=== PATIENT | male | born 1985 | race Two or more races ===

== ENCOUNTER 2017-05-19 09:52 | Emergency (ER) | payer BC ==
[~2017-05-19] VITALS: Ht 180.3 cm; Wt 81.6 kg
[2017-05-19] MEDS ORDERED: SODIUM CHLORIDE 0.9% 1,000 ML IV ONE (11:30)
[2017-05-19] MEDS ORDERED: BACITRACIN TOP OINT 1 UD PKG TOP ONE (11:30)
[2017-05-19] MEDS ORDERED: TETANUS-DIPTH-ACEL PERTUSSIS 0.5ML SYRG IM ONE (11:30)
[2017-05-19 11:45] LABS: Basophils # (auto) 0.2 uL; Basophils % (auto) 2.8 % (0.0-2.0); Eosinophils # (auto) 0.1 uL; Eosinophils % (auto) 1.1 % (0.0-7.0); Hematocrit 29.4 % (41.0-53.0); Lymphocytes % (auto) 12.7 % (10.0-50.0); Mean Corpuscular Hemoglobin 19.9 pg (28.0-32.0); Mean Corpuscular Hgb Conc. 30.7 g/dL (32.0-36.0); Mean Platelet Volume 7.3 fL (7.4-10.4); Monocytes # (auto) 0.7 uL; Monocytes % (auto) 8.8 % (0.0-12.0); Neutrophils # (auto) 6.1 uL; Neutrophils % (auto) 74.6 % (37.0-80.0); Nucleated Red Blood Cells % 0.1 %; Platelet Count (auto) 332 10^3/uL (140-450); Red Cell Distribution Width 17.1 % (11.6-16.0); White Blood Cell 8.2 10^3/uL (4.4-10.8)
[2017-05-19 12:03] LABS: Albumin 3.5 g/dL (3.4-5.0); Alkaline Phosphatase 101 U/L (45-117); Anion Gap 7 (5-15); Aspartate Aminotransferase 20 U/L (15-37); BUN/Creatinine Ratio 8.3; Bilirubin, Total 0.6 mg/dL (0.2-1.0); Blood Urea Nitrogen 8 mg/dL (7-18); Calcium 8.2 mg/dL (8.5-10.1); Carbon Dioxide 24 mmol/L (21-32); Chloride 109 mmol/L (98-107); GFR African American 115 mL/min; GFR Non-African American 95 mL/min; Glucose 96 mg/dL (74-106); Potassium 3.5 mmol/L (3.5-5.1); Sodium 140 mmol/L (136-145); Total Protein 7.7 g/dL (6.4-8.2)
[2017-05-19 18:57] LABS: Urine Bilirubin Negative (Negative); Urine Blood 1+ /uL (Negative); Urine Color Yellow (Yellow); Urine Glucose TRACE mg/dL (Normal); Urine Ketone Negative (Negative); Urine Mucus FEW (None Seen); Urine Nitrite Negative (Negative); Urine RBC 1 /hpf (0 - 3); Urine Squamous Epithelial Cell FEW /hpf (<5); Urine Urobilinogen Normal (Negative); Urine pH 5.5 (5.0-8.0)
[2017-05-19 22:22] VITALS: BP 127/85
== END 2017-05-19 22:30 | disposition short-term general hospital (02) ==
LOC: ER 09:52
DX: S50.811A Abrasion of right forearm, initial encounter (principal); F32.9 Major depressive disorder, single episode, unspecified; R45.851 Suicidal ideations; X78.1XXA Intentional self-harm by knife, initial encounter; Y93.89 Activity, other specified; Y92.89 Other specified places as the place of occurrence of the external cause; Y99.8 Other external cause status
CPT/HCPCS: 36415; 80053; 80307; 80320; 81001; 85025; 90471; 90715; 96360; 99285; J7030

== ENCOUNTER 2017-08-02 17:37 | Inpatient (IN) | payer BC ==
[~2017-08-02] VITALS: Ht 180.3 cm; Wt 80.8 kg
[2017-08-02 18:21] LABS: Basophils # (auto) 0.1 uL; Eosinophils # (auto) 0.2 uL; Monocytes # (auto) 0.7 uL; Monocytes % (auto) 9.4 % (0.0-12.0); Neutrophils # (auto) 5.1 uL; Nucleated Red Blood Cells % 0.3 %; Red Cell Distribution Width 18.6 % (11.8-14.3)
[2017-08-02 18:24] LABS: Basophils % (auto) 0.8 % (0.0-2.0); Eosinophils % (auto) 2.8 % (0.0-7.0); Hematocrit 20.3 % (41.0-53.0); Lymphocytes # (auto) 1.7 uL; Lymphocytes % (auto) 21.4 % (10.0-50.0); Mean Corpuscular Hemoglobin 17.2 pg (28.0-32.0); Mean Corpuscular Hgb Conc. 29.6 g/dL (32.0-36.0); Mean Corpuscular Volume 58.1 fL (80.0-100.0); Neutrophils % (auto) 65.6 % (37.0-80.0); Platelet Count (auto) 434 10^3/uL (140-450); White Blood Cell 7.7 10^3/uL (4.4-10.8)
[2017-08-02] MEDS ORDERED: SODIUM CHLORIDE 0.9% 250 ML IV ONE (18:39)
[2017-08-02 18:42] LABS: Albumin 3.4 g/dL (3.4-5.0); BUN/Creatinine Ratio 10.8; Bilirubin, Total 0.4 mg/dL (0.2-1.0); Calcium 8.1 mg/dL (8.5-10.1); Potassium 3.2 mmol/L (3.5-5.1); Total Protein 7.5 g/dL (6.4-8.2)
[2017-08-02] MEDS ORDERED: PANTOPRAZOLE 40 MG/10 ML VIAL IV ONE (18:45)
[2017-08-02] MEDS ORDERED: IOHEXOL 300 MG/ML 100ML BOTTLE IJ ONE (18:48)
[2017-08-02 19:23] LABS: INR 0.97 (0.9-1.15); Partial Thromboplastin Time 24.3 sec (22.64-33.71); Prothrombin Time 10.6 sec (9.37-12.3)
[2017-08-02] MEDS ORDERED: POTASSIUM CHL 20 Meq TABLET PO ONE (20:30)
[2017-08-02] MEDS ORDERED: ACETAMINOPHEN 500 MG TAB PO PRN (20:30)
[2017-08-02] MEDS ORDERED: ONDANSETRON HCL 4 MG/2 ML VIAL IV PRN (20:30)
[2017-08-02] MEDS ORDERED: SODIUM CHLORIDE 0.9% 1,000 ML IV ONE (20:30)
[2017-08-02 20:35] VITALS: BP 124/71
[2017-08-02 20:55] VITALS: BP 124/71
[2017-08-02 22:00] VITALS: BP 117/69
[2017-08-02] MEDS: PANTOPRAZOLE 40 MG/10 ML VIAL IV SCH (22:00)
[2017-08-02 23:30] VITALS: BP 115/71
[2017-08-03] VITALS (10 sets, daily range): BP systolic 100–121; BP diastolic 54–77
[2017-08-03] MEDS ORDERED: LOSA25TA8 PO (00:28)
[2017-08-03] MEDS ORDERED: OLAN5TAB30 PO (00:28)
[2017-08-03] MEDS ORDERED: BUPR150T6 PO (00:28)
[2017-08-03] MEDS ORDERED: LAMO25TA2 PO (00:28)
[2017-08-03 06:30] LABS: Eosinophils # (auto) 0.2 uL; Hemoglobin 7.3 g/dL (13.5-17.5); Lymphocytes # (auto) 1.7 uL; Monocytes # (auto) 0.9 uL; Nucleated Red Blood Cells % 0.2 %
[2017-08-03 06:33] LABS: Basophils # (auto) 0.1 uL; Basophils % (auto) 0.7 % (0.0-2.0); Eosinophils % (auto) 2.7 % (0.0-7.0); Hematocrit 23.7 % (41.0-53.0); Lymphocytes % (auto) 20.9 % (10.0-50.0); Mean Corpuscular Hemoglobin 19.2 pg (28.0-32.0); Mean Corpuscular Hgb Conc. 30.9 g/dL (32.0-36.0); Mean Corpuscular Volume 62.2 fL (80.0-100.0); Mean Platelet Volume 7.1 fL (6.9-10.8); Monocytes % (auto) 10.5 % (0.0-12.0); Neutrophils # (auto) 5.4 uL; Neutrophils % (auto) 65.2 % (37.0-80.0); Platelet Count (auto) 354 10^3/uL (140-450); White Blood Cell 8.3 10^3/uL (4.4-10.8)
[2017-08-03 06:37] LABS: Red Cell Distribution Width 23.5 % (11.8-14.3)
[2017-08-03 06:46] LABS: BUN/Creatinine Ratio 8.3; Calcium 7.9 mg/dL (8.5-10.1); Potassium 3.8 mmol/L (3.5-5.1)
[2017-08-03 06:56] LABS: Anisocytosis Moderate; Microcytosis Marked; Platelet Estimate Adequate
[2017-08-03 06:57] LABS: Hypochromia Moderate; Ovalocytes FEW; Polychromasia Slight
[2017-08-03 06:58] LABS: Tear Drop Cells FEW
[2017-08-03] MEDS: HYDROcodone-ACET 5/325MG TAB PO PRN ×2 (08:16→13:09)
[2017-08-03] MEDS: PANTOPRAZOLE 40 MG/10 ML VIAL IV SCH ×2 (09:35→21:53)
[2017-08-03 12:13] LABS: Hemoglobin 7.4 g/dL (13.5-17.5)
[2017-08-03 12:15] LABS: Hematocrit 24.6 % (41.0-53.0)
[2017-08-03] MEDS ORDERED: GOLYTELY 4L KIT PO ONE (15:15)
[2017-08-03 18:29] LABS: Hematocrit 26.1 % (41.0-53.0)
[2017-08-04 00:51] LABS: Hemoglobin 7.4 g/dL (13.5-17.5)
[2017-08-04 05:43] VITALS: BP 109/68
[2017-08-04] MEDS ORDERED: GOLYTELY 4L KIT PO ONE (06:00)
[2017-08-04 06:22] LABS: Basophils # (auto) 0 uL; Basophils % (auto) 0.5 % (0.0-2.0); Eosinophils # (auto) 0.2 uL; Eosinophils % (auto) 3.1 % (0.0-7.0); Hematocrit 25.1 % (41.0-53.0); Hemoglobin 7.6 g/dL (13.5-17.5); Lymphocytes # (auto) 1.7 uL; Lymphocytes % (auto) 22.3 % (10.0-50.0); Mean Corpuscular Hgb Conc. 30.2 g/dL (32.0-36.0); Mean Corpuscular Volume 62.8 fL (80.0-100.0); Mean Platelet Volume 7.1 fL (6.9-10.8); Monocytes # (auto) 0.8 uL; Monocytes % (auto) 10.3 % (0.0-12.0); Neutrophils # (auto) 4.9 uL; Neutrophils % (auto) 63.8 % (37.0-80.0); Nucleated Red Blood Cells % 0.2 %; Platelet Count (auto) 376 10^3/uL (140-450); White Blood Cell 7.7 10^3/uL (4.4-10.8)
[2017-08-04 06:25] LABS: Red Cell Distribution Width 22.9 % (11.8-14.3)
[2017-08-04 06:58] LABS: Anisocytosis Slight; Hypochromia Marked; Microcytosis Marked; Platelet Estimate Adequate; Polychromasia Slight
[2017-08-04 07:06] LABS: Albumin 3.2 g/dL (3.4-5.0); BUN/Creatinine Ratio 5.8; Bilirubin, Total 1.2 mg/dL (0.2-1.0); Calcium 8.4 mg/dL (8.5-10.1); Potassium 3.4 mmol/L (3.5-5.1); Total Protein 7.2 g/dL (6.4-8.2)
[2017-08-04] MEDS ORDERED: POTASSIUM CHLORIDE 40 MEQ, LIDOCAINE 1% (LOCAL ANESTH.) 4 ML in SODIUM CHL 0.9% 250 ML IV ONE (08:00)
[2017-08-04] MEDS ORDERED: LIDOCAINE VISCOUS 2% 15ML UD ONE (08:31)
[2017-08-04] MEDS ORDERED: SODIUM CHLORIDE LOCK 10 ML ONE (08:31)
[2017-08-04] MEDS ORDERED: fentaNYL CITRATE 100 MCG/2 ML VL ONE (08:32)
[2017-08-04] MEDS ORDERED: MIDAZOLAM HCL 5 MG/ML-1ML VIAL ONE (08:32)
[2017-08-04] MEDS ORDERED: diphenhdrAMINE HCL 50 MG/1 ML VL ONE (08:32)
[2017-08-04 09:00] VITALS: BP_SYST 121; BP_SYST 128; BP_DIAS 72; BP_DIAS 76
[2017-08-04] MEDS ORDERED: LIDOCAINE VISCOUS 2% 15ML UD MT ONE (09:39)
[2017-08-04] MEDS ORDERED: MIDAZOLAM HCL 5 MG/ML-1ML VIAL IV ONE ×3 (09:40→09:52)
[2017-08-04] MEDS ORDERED: fentaNYL CITRATE 100 MCG/2 ML VL IV ONE ×3 (09:40→09:52)
[2017-08-04] MEDS ORDERED: diphenhdrAMINE HCL 50 MG/1 ML VL IV ONE (09:42)
[2017-08-04 13:00] VITALS: BP_SYST 119; BP_SYST 154; BP_DIAS 58; BP_DIAS 66
[2017-08-04] MEDS: MESALAMINE 400mg Delayed Release Cap PO SCH ×2 (13:26→21:56)
[2017-08-04] MEDS: predniSONE 20 MG TAB PO SCH (13:26)
[2017-08-04] MEDS ORDERED: buPROPion HCL 100 MG TAB PO ONE (14:00)
[2017-08-04 16:33] VITALS: BP_SYST 107; BP_SYST 126; BP_DIAS 67; BP_DIAS 72
[2017-08-04] MEDS ORDERED: LOSARTAN POTASSIUM 25 MG TAB PO SCH (22:00)
[2017-08-04] MEDS ORDERED: OLANZapine 5 MG TAB PO SCH (22:00)
[2017-08-04] MEDS ORDERED: lamoTRIgine 25 MG TAB PO SCH (22:00)
[2017-08-04 22:09] VITALS: BP 111/71
[2017-08-05 05:40] VITALS: BP 110/59
[2017-08-05] MEDS: MESALAMINE 400mg Delayed Release Cap PO SCH (06:07)
[2017-08-05 06:25] LABS: Basophils # (auto) 0 uL; Basophils % (auto) 0.2 % (0.0-2.0); Eosinophils # (auto) 0 uL; Hemoglobin 7.8 g/dL (13.5-17.5); Lymphocytes # (auto) 1.4 uL; Mean Corpuscular Hemoglobin 18.8 pg (28.0-32.0); Monocytes # (auto) 0.8 uL; Nucleated Red Blood Cells % 0.3 %
[2017-08-05 06:27] LABS: Eosinophils % (auto) 0.2 % (0.0-7.0); Hematocrit 25.7 % (41.0-53.0); Lymphocytes % (auto) 18.3 % (10.0-50.0); Mean Corpuscular Hgb Conc. 30.3 g/dL (32.0-36.0); Mean Corpuscular Volume 62.1 fL (80.0-100.0); Monocytes % (auto) 10.6 % (0.0-12.0); Neutrophils # (auto) 5.4 uL; Neutrophils % (auto) 70.7 % (37.0-80.0); Platelet Count (auto) 407 10^3/uL (140-450); White Blood Cell 7.7 10^3/uL (4.4-10.8)
[2017-08-05 06:29] LABS: Red Cell Distribution Width 23.6 % (11.8-14.3)
[2017-08-05 06:36] LABS: Albumin 3.3 g/dL (3.4-5.0); BUN/Creatinine Ratio 6.1; Calcium 8.9 mg/dL (8.5-10.1); Potassium 3.8 mmol/L (3.5-5.1)
[2017-08-05 06:59] LABS: Bilirubin, Total 0.9 mg/dL (0.2-1.0); Total Protein 7.5 g/dL (6.4-8.2)
[2017-08-05 09:00] VITALS: BP 98/50
[2017-08-05] MEDS: predniSONE 20 MG TAB PO SCH (09:44)
[2017-08-05] MEDS ORDERED: buPROPion HCL 100 MG TAB PO SCH (10:00)
[2017-08-05 10:25] LABS: Anisocytosis Moderate; Hypochromia Marked; Microcytosis Marked; Ovalocytes FEW; Platelet Estimate Adequate; Tear Drop Cells FEW
[2017-08-05 10:26] LABS: Stomatocytes Few
[2017-08-05 11:12] VITALS: BP 99/47
[2017-08-05 13:01] VITALS: BP 122/68
== END 2017-08-05 13:55 | disposition home or self-care (01) | DRG 378 ==
LOC: ER 17:39 → OVERFLOW 17:40 → CENTRAL 21:45
PROVIDERS: ADMIT Nurse Practitioner Family; ATTEND Internal Medicine
PROC: 30233N1 Transfusion of Nonautologous Red Blood Cells into Peripheral Vein, Percutaneous Approach (ICD-10-PCS; 2017-08-02)
PROC: 0DBG8ZX Excision of Left Large Intestine, Via Natural or Artificial Opening Endoscopic, Diagnostic (ICD-10-PCS; 2017-08-04)
PROC: 0DJ08ZZ Inspection of Upper Intestinal Tract, Via Natural or Artificial Opening Endoscopic (ICD-10-PCS; principal; 2017-08-04 09:38)
DX: K92.2 Gastrointestinal hemorrhage, unspecified (principal); K51.90 Ulcerative colitis, unspecified, without complications; E44.1 Mild protein-calorie malnutrition; D50.0 Iron deficiency anemia secondary to blood loss (chronic); E87.6 Hypokalemia; F32.9 Major depressive disorder, single episode, unspecified; F41.9 Anxiety disorder, unspecified; I10 Essential (primary) hypertension; N20.0 Calculus of kidney; K62.1 Rectal polyp; Z68.24 Body mass index [BMI] 24.0-24.9, adult
CPT/HCPCS: 36415; 43235; 45380; 74177; 80048; 80053; 82270; 85014; 85018; 85025; 85610; 85730; 86850; 86900; 86901; 86920; 94761; C9113; J2001; J2250

== ENCOUNTER 2017-08-20 04:18 | Emergency (ER) | payer BC ==
[~2017-08-20] VITALS: Ht 180.3 cm; Wt 81.6 kg
[~2017-08-20 04:18] MED LIST: BUPR150T6 PO; LAMO25TA2 PO; LOSA25TA8 PO; OLAN5TAB30 PO
[2017-08-20 04:30] VITALS: BP 144/81
== END 2017-08-20 06:45 | disposition left against medical advice (07) ==
LOC: EDBD 04:18 → ER 04:18
DX: R10.9 Unspecified abdominal pain (principal); Z53.21 Procedure and treatment not carried out due to patient leaving prior to being seen by health care provider

== ENCOUNTER 2018-09-21 12:03 | Emergency (ER) | payer BC ==
[~2018-09-21] VITALS: Ht 180.3 cm; Wt 83.9 kg
[2018-09-21] MEDS ORDERED: SODIUM CHLORIDE 0.9% 1,000 ML IVB ONE (12:18)
[2018-09-21] MEDS ORDERED: KETOROLAC TROMETH 30 MG/ML 1ML VIAL IV ONE (12:30)
[2018-09-21 12:47] LABS: Basophils # (auto) 0 uL; Eosinophils # (auto) 0.1 uL; Hemoglobin 13.5 g/dL (13.5-17.5); Nucleated Red Blood Cells % 0.1 %
[2018-09-21 12:49] LABS: Basophils % (auto) 0.2 % (0.0-2.0); Eosinophils % (auto) 0.9 % (0.0-7.0); Hematocrit 40.8 % (41.0-53.0); Lymphocytes # (auto) 1.5 uL; Lymphocytes % (auto) 19.6 % (10.0-50.0); Mean Corpuscular Hemoglobin 25.3 pg (28.0-32.0); Mean Corpuscular Hgb Conc. 33.1 g/dL (32.0-36.0); Mean Corpuscular Volume 76.7 fL (80.0-100.0); Monocytes # (auto) 0.6 uL; Monocytes % (auto) 7.9 % (0.0-12.0); Neutrophils # (auto) 5.5 uL; Neutrophils % (auto) 71.4 % (37.0-80.0); Platelet Count (auto) 250 10^3/uL (140-450); Red Blood Cells 5.32 10^6/uL (4.5-5.90); Red Cell Distribution Width 19.2 % (11.8-14.3); White Blood Cell 7.7 10^3/uL (4.4-10.8)
[2018-09-21 13:01] LABS: Urine Bacteria NONE SEEN /hpf (None Seen); Urine Blood 3+ /uL (Negative); Urine Budding Yeast MANY /hpf (None Seen); Urine Mucus FEW (None Seen); Urine Specific Gravity 1.025 (1.001-1.035); Urine WBC 24 /hpf (0 - 3)
[2018-09-21 13:01] LABS: Calcium 8.6 mg/dL (8.5-10.1); Potassium 3.6 mmol/L (3.5-5.1)
[2018-09-21 13:03] LABS: Bilirubin, Total 0.5 mg/dL (0.2-1.0); Total Protein 7.9 g/dL (6.4-8.2)
[2018-09-21] MEDS ORDERED: cefTRIAXone 1GM/50ML D5W 50 ML IV ONE (14:00)
[2018-09-21 14:35] VITALS: BP 131/81
== END 2018-09-21 14:36 | disposition home or self-care (01) ==
LOC: ER 12:05
DX: N20.0 Calculus of kidney (principal); N39.0 Urinary tract infection, site not specified
CPT/HCPCS: 36415; 74176; 80053; 81001; 85025; 94761; 96365; 96375; 99284; J0696; J1885; J7030